=== PATIENT | male | born 1995 | race Caucasian/White ===

== ENCOUNTER 2016-06-27 03:28 | Emergency (ER) | payer OTHER ==
[~2016-06-27] VITALS: Ht 162.6 cm; Wt 64.7 kg
[~2016-06-27 03:28] MED LIST: DICY10CA55 PO; LACT10SO17 PO; MIRT15TA2 PO; TRAM-10 PO
[2016-06-27 03:33] VITALS: TEMP 36.5; Ht 162.6 cm; Wt 64.7 kg
[2016-06-27] MEDS ORDERED: LIDOCAINE HCL 2% VISC SOLN 20 ML UDC PO STA (04:10)
[2016-06-27] MEDS ORDERED: ALUMINUM/MAGNESIUM SUSP 30 ML UDC PO STA (04:10)
[2016-06-27] MEDS ORDERED: NXM/40 PO (04:12)
--- NOTE | 2016-06-27 04:13 | EMERGENCY ROOM VISIT NOTE ---
History Report prepared by Anthony: Soheila Montana Under the Supervision of: Dr. Jami Sutherland D.O. First contact with patient: 03:46 Chief Complaint: ABDOMINAL PAIN Stated Complaint: STOMACH/CHEST PAINS History of Present Illness The patient is a 20 year old male who presents to the Emergency Room with complaints of worsening upper abdominal pain beginning 5 days prior to arrival. The pain is located toward the bottom end of the rib cage into the abdomen. The patient has a history of heart burn. He was seen at [facility] and was told he had acid reflux and was told to get over the counter medications including Pepcid. The Pepcid has not relieved his pain. Patient currently has Hepatitis C. He denies any other symptoms at this time. Source of History: patient Onset: 5 days [facility] Position: abdomen (upper) Timing: worsening Note: He denies any other symptoms at this time. Review of Systems See HPI for pertinent positives & negatives. A total of 10 systems reviewed and were otherwise negative. Past Medical & Surgical Medical Problems: (1) Hepatitis C Social History Problems: (1) IV drug abuse Family History Cancer Social History Smoking Status: Current Every Day Smoker Alcohol Use: occasionally Marital Status: in relationship Housing Status: lives with significant other Occupation Status: employed Current/Historical Medications Scheduled Dicyclomine Hcl (Bentyl), 1 CAP PO TID Esomeprazole Magnesium (Nexium), 1 CAP PO DAILY Lactulose (Chronulac), 30 ML PO DAILY Mirtazapine Soltab (Remeron Soltab), 15 MG PO HS Scheduled PRN Tramadol (Ultram), 1 TAB PO TID PRN for Pain Allergies Coded Allergies: Ondansetron (Verified Allergy, Intermediate, HIVES, 04/28/15) Physical Exam Vital Signs Date Time Temp Pulse Resp B/P Pulse Ox O2 Delivery O2 Flow Rate FiO2 06/27/16 04:32 78 18 128/72 99 06/27/16 03:33 36.5 74 18 122/76 99 Room Air Physical Exam HEENT: Head - normocephalic and atraumatic Pupils are equal, round, and reactive to light. Extraocular eye muscles are intact, and sclera are anicteric. Nose - moist nasal mucosa without discharge. Mouth - moist buccal mucosa. Oropharynx is nonerythematous and there is no tonsillar exudate or edema noted. Neck: Supple; no JVD, nuchal rigidity, cervical lymphadenopathy. Heart: Regular rate and rhythm. There is a normal S1 and S2 with no murmurs, clicks, or gallops appreciated. Lungs: Clear to auscultation bilaterally with no wheezes, rales, or rhonchi. Abdomen: Soft, epigastric tender to palpation, nondistended, with good bowel sounds. There are no palpable pulsatile masses or hepatosplenomegaly. There is no guarding, rigidity, or rebound noted. Extremities: No evidence of cyanosis, clubbing, or edema. There are easily palpable peripheral pulses. Skin: warm and dry with good turgor. Multiple cat scratches and tattoos. Medical Decision & Procedures Medications Administered Medications (Trade) Dose Ordered Sig/Michelle Route Start Time Stop Time Status Last Admin Dose Admin Lidocaine HCl (Viscous Lidocaine 2% Soln) 10 ml NOW STAT PO 06/27/16 04:10 06/27/16 04:11 DC 06/27/16 04:10 10 ML Al Hydroxide/Mg Hydroxide (Maalox Susp) 30 ml NOW STAT PO 06/27/16 04:10 06/27/16 04:11 DC 06/27/16 04:10 30 ML ED Course 0404: Past medical records reviewed. The patient was evaluated in room B3. A complete history and physical exam was performed. 0410: Maalox Susp 30 ml PO, Viscous Lidocaine 2% Soln 10 ml PO. 0433: The patient will be prescribed a proton pump inhibitor. He was discharged home. Medical Decision The patient is a 20 year old male who presents to the ED with abdominal pain. Differential diagnosis includes esophagitis, GERD, pancreatitis, gastritis, ulcer disease. This is a 20-year-old male patient with moderate epigastric tenderness and heartburn. He has been using Maalox and Pepcid at home with no relief of his symptoms. He does get relief from GI cocktail. I've encouraged the patient is taking a bland diet and avoid tobacco and caffeine. I will start him on Nexium for the next month. I've asked him to follow-up with his PCP. If symptoms are not improving, he should return to the emergency department or follow-up with the PCP. Impression Primary Impression: GERD (gastroesophageal reflux disease) Scribe Attestation The scribe's documentation has been prepared under my direction and personally reviewed by me in its entirety. I confirm that the note above accurately reflects all work, treatment, procedures, and medical decision making performed by me. Departure Information Dispostion Home / Self-Care Prescriptions Esomeprazole Magnesium (NEXIUM) 40 Mg Cap 1 CAP PO DAILY for 30 Days, #30 CAP 5 Refills Prov: Jami Sutherland D.O. 06/27/16 Referrals No Doctor, Assigned (PCP) Forms HOME CARE DOCUMENTATION FORM, IMPORTANT VISIT INFORMATION Patient Instructions GERD, My [facility] Additional Instructions Take a bland diet. Avoid caffeine and tobacco Nexium Follow up with PCP if ou have continued symptoms
[2016-06-27 04:32] VITALS: BP 128/72; PULSE 78; O2SAT 99
== END 2016-06-27 04:34 | disposition home or self-care (01) ==
LOC: C.EDB 03:29
DX: K21.9 Gastro-esophageal reflux disease without esophagitis (principal); B19.20 Unspecified viral hepatitis C without hepatic coma; F17.200 Nicotine dependence, unspecified, uncomplicated; Z79.899 Other long term (current) drug therapy; Z88.8 Allergy status to other drugs, medicaments and biological substances